=== PATIENT | male | born 1990 | race Two or more races ===

== ENCOUNTER 2018-02-10 00:03 | Emergency (ER) | payer MEDICAID ==
[~2018-02-10] VITALS: Ht 175.3 cm; Wt 77.0 kg
[2018-02-10] MEDS ORDERED: LIDOCAINE HCL/PF 1% 2ML VIAL INFIL ONE (06:30)
[2018-02-10] MEDS ORDERED: LIDOCAINE HCL/PF 1% 10 MG/ML 5ML VIAL IJ SCH (06:34)
[2018-02-10 06:45] VITALS: BP 118/75
[2018-02-10] MEDS ORDERED: IBUPROFEN 600MG TABLET PO ONE (06:45)
== END 2018-02-10 07:17 | disposition home or self-care (01) ==
LOC: ER 00:03
DX: L02.412 Cutaneous abscess of left axilla (principal); F12.10 Cannabis abuse, uncomplicated; F17.200 Nicotine dependence, unspecified, uncomplicated; F15.10 Other stimulant abuse, uncomplicated; Z98.890 Other specified postprocedural states; Z87.81 Personal history of (healed) traumatic fracture
CPT/HCPCS: 10060; 99283; J3490; Z7610